=== PATIENT | female | born 1960 | race Caucasian/White ===

== ENCOUNTER 2020-08-06 11:35 | Inpatient (IN) ==
[2020-08-06] MEDS ORDERED: Morphine Sulfate Oral CONC 10 MG/0.5 ML ORAL.SYG SL PRN (12:49)
[2020-08-06] MEDS ORDERED: Ondansetron 4 MG/2 ML VIAL IVP PRN (12:49)
[2020-08-06] MEDS: metroNIDAZOLE 500 MG TABLET PO SCH ×3 (13:49→19:52)
[2020-08-06] MEDS: Acetaminophen IV 1,000 MG/100 ML BAG IVPB SCH ×2 (16:56→23:35)
[2020-08-06] MEDS: *HR* Heparin 5,000 UNIT/ML VIAL SQ SCH (16:57)
[2020-08-06] MEDS: Ketorolac 30 MG/ML VIAL IVP SCH ×2 (16:57→23:34)
[2020-08-06 20:20] LABS: Adenovirus Not Detected (Not Detect); Bordetella Pertussis Not Detected (Not Detect); Chlamydophila pneumoniae Not Detected (Not Detect); Coronavirus 229E Not Detected (Not Detect); Coronavirus HKU1 Not Detected (Not Detect); Coronavirus NL63 Not Detected (Not Detect); Coronavirus OC43 Not Detected (Not Detect); Human Metapneumovirus Not Detected (Not Detect); Human Rhinovirus/Enterovirus Not Detected (Not Detect); Influenza A Subtype 2009 H1 Not Detected (Not Detect); Influenza B Not Detected (Not Detect); Mycoplasma pneumoniae Not Detected (Not Detect); Parainfluenza Virus 1 Not Detected (Not Detect); Parainfluenza Virus 2 Not Detected (Not Detect); Parainfluenza Virus 3 Not Detected (Not Detect); Parainfluenza Virus 4 Not Detected (Not Detect); Respiratory Syncytial Virus Not Detected (Not Detect); SARS-CoV-2 Not Detected (Not Detect)
[2020-08-06] MEDS: 0.9 % Sodium Chloride 1,000 ML IVC SCH (23:36)
[2020-08-07] MEDS: *HR* Heparin 5,000 UNIT/ML VIAL SQ SCH ×2 (05:31→17:17)
[2020-08-07] MEDS: Ketorolac 30 MG/ML VIAL IVP SCH ×4 (05:37→23:46)
[2020-08-07] MEDS: Acetaminophen IV 1,000 MG/100 ML BAG IVPB SCH ×4 (05:37→23:47)
[2020-08-07] MEDS ORDERED: Pantoprazole 40 MG VIAL IVP SCH (09:00)
[2020-08-07] MEDS: 0.9 % Sodium Chloride 1,000 ML IVC SCH ×2 (09:27→17:54)
[2020-08-07] MEDS ORDERED: levoFLOXacin 500 MG/100 ML 500 MG/100 ML BAG IVPB SCH (09:45)
[2020-08-07 10:09] LABS: Basophils % 0.6 %; Eosinophils # 0.2 K/mcL (0.0-0.6); Eosinophils % 2.3 %; Hematocrit 39.3 % (35.3-44.9); Hemoglobin 12.2 g/dL (11.5-15.4); Immature Granulocytes % 1.3 % (0-4); Lymphocytes # 1.5 K/mcL (0.6-4.6); Lymphocytes % 21.8 %; Mean Corpuscular Hemoglobin 29.6 pg (28.0-33.3); Mean Corpuscular Volume 95.4 fL (83.0-100.0); Mean Platelet Volume 11.7 fL (9.4-12.4); Monocytes # 0.5 K/mcL (0.0-1.3); Monocytes % 6.4 %; Neutrophils # 4.8 K/mcL (1.6-8.9); Platelet Count 213 K/mcL (140-400); Red Blood Count 4.12 M/mcL (3.82-4.97); Red Cell Distribution Width 13.2 % (11.5-14.5); Segmented Neutrophils % 67.6 %
[2020-08-07 10:26] LABS: BUN/Creatinine Ratio 13 (6-26); Blood Urea Nitrogen 8 mg/dL (6-20); Carbon Dioxide 28 mEq/L (23-29); Chloride 105 mEq/L (98-107); Glucose 90 mg/dL (70-105); Osmolality,Calculated 284 (280-300); Potassium 3.8 mEq/L (3.5-5.1); Sodium 138 mEq/L (136-145); eGFR For African Americans > 60 (> 60); eGFR For Non-African Americans > 60 (> 60)
[2020-08-07] MEDS ORDERED: MetroNIDAZOLE 500 MG/100 ML 500 MG/100 ML BAG IVPB SCH (11:00)
[2020-08-07] MEDS ORDERED: CefOXitin 1,000 MG VIAL ONE (12:26)
[2020-08-07] MEDS ORDERED: *HR* HYDROmorphone PF 0.5 MG/0.5 ML SYRINGE IVP PRN (16:19)
[2020-08-07] MEDS ORDERED: Promethazine 6.25 MG in Water for inj. (sterile) 20 ML IVPB PRN (16:19)
[2020-08-07] MEDS ORDERED: *HR* Meperidine 25 MG/ML SYRINGE IVP PRN (16:19)
[2020-08-07] MEDS ORDERED: Ondansetron 4 MG/2 ML VIAL IVP PRN (16:19)
[2020-08-07] MEDS ORDERED: *HR* HYDROmorphone 20 MG/20 ML PCA IVC PRN (17:10)
[2020-08-07] MEDS ORDERED: Naloxone 0.4 MG/ML INJ IVP PRN (17:10)
[2020-08-07] MEDS: Ondansetron 4 MG/2 ML VIAL IVP PRN (18:24)
[2020-08-07] MEDS: MetroNIDAZOLE 500 MG/100 ML 500 MG/100 ML BAG IVPB SCH (20:18)
[2020-08-08] MEDS: Ondansetron 4 MG/2 ML VIAL IVP PRN (00:33)
[2020-08-08] MEDS: MetroNIDAZOLE 500 MG/100 ML 500 MG/100 ML BAG IVPB SCH ×3 (02:24→19:35)
[2020-08-08] MEDS: Ketorolac 30 MG/ML VIAL IVP SCH ×4 (05:25→23:24)
[2020-08-08] MEDS: *HR* Heparin 5,000 UNIT/ML VIAL SQ SCH ×2 (05:26→17:38)
[2020-08-08] MEDS: Acetaminophen IV 1,000 MG/100 ML BAG IVPB SCH ×4 (05:26→23:24)
[2020-08-08] MEDS: 0.9 % Sodium Chloride 1,000 ML IVC SCH (05:35)
[2020-08-08] MEDS ORDERED: *HR* Metoprolol 5 MG/5 ML VIAL IVP PRN (09:07)
[2020-08-08 10:02] LABS: Basophils % 0.1 %; Eosinophils # 0.1 K/mcL (0.0-0.6); Eosinophils % 1.7 %; Immature Granulocytes % 0.7 % (0-4); Lymphocytes # 0.9 K/mcL (0.6-4.6); Lymphocytes % 10.4 %; Mean Corpuscular HGB Conc 32.3 g/dL (31.6-35.5); Mean Corpuscular Hemoglobin 31.3 pg (28.0-33.3); Mean Corpuscular Volume 96.9 fL (83.0-100.0); Mean Platelet Volume 11.3 fL (9.4-12.4); Monocytes # 0.6 K/mcL (0.0-1.3); Monocytes % 7.5 %; Neutrophils # 6.5 K/mcL (1.6-8.9); Platelet Count 170 K/mcL (140-400); Red Cell Distribution Width 13.4 % (11.5-14.5); Segmented Neutrophils % 79.6 %; White Blood Count 8.2 K/mcL (4.3-11.1)
[2020-08-08] MEDS: levoFLOXacin 500 MG/100 ML 500 MG/100 ML BAG IVPB SCH (10:18)
[2020-08-08] MEDS: BuPROPion XL (24 HR) 150 MG TABLET PO SCH (10:18)
[2020-08-08] MEDS: Pantoprazole 40 MG VIAL IVP SCH (10:18)
[2020-08-08 10:22] LABS: BUN/Creatinine Ratio 14 (6-26); Blood Urea Nitrogen 8 mg/dL (6-20); Carbon Dioxide 23 mEq/L (23-29); Chloride 110 mEq/L (98-107); Glucose 94 mg/dL (70-105); Osmolality,Calculated 284 (280-300); Potassium 3.6 mEq/L (3.5-5.1); Sodium 138 mEq/L (136-145); eGFR For African Americans > 60 (> 60); eGFR For Non-African Americans > 60 (> 60)
[2020-08-08] MEDS: D5% in 0.45% NACL w KCl 20 MEQ/1,000 ML MLS IVC SCH (12:44)
[2020-08-08] MEDS ORDERED: Chloraseptic Spray 177 ML BOTTLE MM PRN (17:21)
[2020-08-09] MEDS: D5% in 0.45% NACL w KCl 20 MEQ/1,000 ML MLS IVC SCH ×4 (00:29→21:16)
[2020-08-09] MEDS: MetroNIDAZOLE 500 MG/100 ML 500 MG/100 ML BAG IVPB SCH ×3 (03:44→21:12)
[2020-08-09] MEDS: *HR* Heparin 5,000 UNIT/ML VIAL SQ SCH ×2 (04:53→17:02)
[2020-08-09] MEDS: Acetaminophen IV 1,000 MG/100 ML BAG IVPB SCH ×3 (04:54→15:30)
[2020-08-09] MEDS: Ketorolac 30 MG/ML VIAL IVP SCH ×3 (07:45→17:03)
[2020-08-09] MEDS: levoFLOXacin 500 MG/100 ML 500 MG/100 ML BAG IVPB SCH (07:46)
[2020-08-09] MEDS: Pantoprazole 40 MG VIAL IVP SCH (07:46)
[2020-08-09] MEDS: BuPROPion XL (24 HR) 150 MG TABLET PO SCH (07:46)
[2020-08-09 10:38] LABS: BUN/Creatinine Ratio 10 (6-26); Blood Urea Nitrogen 6 mg/dL (6-20); Calcium 8.2 mg/dL (8.6-10.3); Carbon Dioxide 25 mEq/L (23-29); Chloride 109 mEq/L (98-107); Glucose 112 mg/dL (70-105); Magnesium 1.7 mg/dL (1.6-2.6); Osmolality,Calculated 284 (280-300); Phosphorous 2.5 mg/dL (2.7-4.5); Potassium 3.7 mEq/L (3.5-5.1); Sodium 138 mEq/L (136-145); eGFR For African Americans > 60 (> 60); eGFR For Non-African Americans > 60 (> 60)
[2020-08-10] MEDS: Acetaminophen IV 1,000 MG/100 ML BAG IVPB SCH ×4 (00:37→21:05)
[2020-08-10] MEDS: *HR* Heparin 5,000 UNIT/ML VIAL SQ SCH ×2 (05:29→17:58)
[2020-08-10] MEDS: MetroNIDAZOLE 500 MG/100 ML 500 MG/100 ML BAG IVPB SCH ×3 (05:29→17:58)
[2020-08-10] MEDS: BuPROPion XL (24 HR) 150 MG TABLET PO SCH ×2 (09:03→09:49)
[2020-08-10] MEDS: Pantoprazole 40 MG VIAL IVP SCH (09:10)
[2020-08-10] MEDS: levoFLOXacin 500 MG/100 ML 500 MG/100 ML BAG IVPB SCH (09:11)
[2020-08-10] MEDS: D5% in 0.45% NACL w KCl 20 MEQ/1,000 ML MLS IVC SCH (09:17)
[2020-08-10] MEDS: Ketorolac 15 MG/ML VIAL IVP SCH ×3 (11:43→23:42)
[2020-08-10] MEDS: Ondansetron 4 MG/2 ML VIAL IVP PRN (21:20)
[2020-08-11] MEDS: MetroNIDAZOLE 500 MG/100 ML 500 MG/100 ML BAG IVPB SCH ×3 (02:06→19:32)
[2020-08-11] MEDS: Acetaminophen IV 1,000 MG/100 ML BAG IVPB SCH ×4 (02:07→21:01)
[2020-08-11] MEDS: *HR* Heparin 5,000 UNIT/ML VIAL SQ SCH ×2 (05:52→17:20)
[2020-08-11] MEDS: Ketorolac 15 MG/ML VIAL IVP SCH ×4 (05:52→23:34)
[2020-08-11 07:06] LABS: Basophils % 0.4 %; Eosinophils # 0.3 K/mcL (0.0-0.6); Eosinophils % 3.5 %; Hemoglobin 10.1 g/dL (11.5-15.4); Immature Granulocytes % 0.9 % (0-4); Lymphocytes # 1.2 K/mcL (0.6-4.6); Lymphocytes % 14.9 %; Mean Corpuscular HGB Conc 32.6 g/dL (31.6-35.5); Mean Corpuscular Hemoglobin 30.4 pg (28.0-33.3); Mean Corpuscular Volume 93.4 fL (83.0-100.0); Mean Platelet Volume 10.9 fL (9.4-12.4); Monocytes # 0.5 K/mcL (0.0-1.3); Monocytes % 6.6 %; Neutrophils # 5.9 K/mcL (1.6-8.9); Platelet Count 193 K/mcL (140-400); Red Blood Count 3.32 M/mcL (3.82-4.97); Red Cell Distribution Width 13.3 % (11.5-14.5); Segmented Neutrophils % 73.7 %; White Blood Count 7.9 K/mcL (4.3-11.1)
[2020-08-11 07:28] LABS: BUN/Creatinine Ratio 9 (6-26); Blood Urea Nitrogen 4 mg/dL (6-20); Calcium 8.4 mg/dL (8.6-10.3); Carbon Dioxide 24 mEq/L (23-29); Chloride 109 mEq/L (98-107); Glucose 107 mg/dL (70-105); Magnesium 1.7 mg/dL (1.6-2.6); Osmolality,Calculated 287 (280-300); Phosphorous 3.8 mg/dL (2.7-4.5); Potassium 3.3 mEq/L (3.5-5.1); Sodium 140 mEq/L (136-145); eGFR For African Americans > 60 (> 60); eGFR For Non-African Americans > 60 (> 60)
[2020-08-11] MEDS ORDERED: Scopolamine Patch 1.5 MG PATCH.TD72 TD ONE (07:31)
[2020-08-11] MEDS ORDERED: Potassium Chloride 40 MEQ, Lidocaine 1% 2 ML in 0.9 % Sodium Chloride 500 ML IVPB ONE (07:43)
[2020-08-11] MEDS: Pantoprazole 40 MG VIAL IVP SCH (08:38)
[2020-08-11] MEDS: BuPROPion XL (24 HR) 150 MG TABLET PO SCH (08:38)
[2020-08-11] MEDS: levoFLOXacin 500 MG/100 ML 500 MG/100 ML BAG IVPB SCH (08:50)
[2020-08-11] MEDS ORDERED: Propranolol LA (24 HR) 80 MG CAP.SA.24H PO SCH (18:00)
[2020-08-12] MEDS: MetroNIDAZOLE 500 MG/100 ML 500 MG/100 ML BAG IVPB SCH (02:59)
[2020-08-12] MEDS: Acetaminophen IV 1,000 MG/100 ML BAG IVPB SCH ×2 (04:06→10:04)
[2020-08-12] MEDS: Ketorolac 15 MG/ML VIAL IVP SCH (06:15)
[2020-08-12] MEDS: *HR* Heparin 5,000 UNIT/ML VIAL SQ SCH (06:16)
[2020-08-12 06:45] VITALS: BP 134/85
[2020-08-12 07:40] LABS: BUN/Creatinine Ratio 8 (6-26); Blood Urea Nitrogen 4 mg/dL (6-20); Calcium 8.4 mg/dL (8.6-10.3); Carbon Dioxide 25 mEq/L (23-29); Chloride 109 mEq/L (98-107); Glucose 88 mg/dL (70-105); Magnesium 1.6 mg/dL (1.6-2.6); Osmolality,Calculated 288 (280-300); Phosphorous 3.4 mg/dL (2.7-4.5); Potassium 3.5 mEq/L (3.5-5.1); Sodium 141 mEq/L (136-145); eGFR For African Americans > 60 (> 60); eGFR For Non-African Americans > 60 (> 60)
[2020-08-12] MEDS ORDERED: Ibuprofen 800 MG TABLET PO ONE (09:03)
[2020-08-12] MEDS: Pantoprazole 40 MG VIAL IVP SCH (09:31)
[2020-08-12] MEDS: BuPROPion XL (24 HR) 150 MG TABLET PO SCH (09:32)
[2020-08-12] MEDS: levoFLOXacin 500 MG/100 ML 500 MG/100 ML BAG IVPB SCH (09:33)
== END 2020-08-12 13:07 | disposition home or self-care (01) | DRG 331 ==
LOC: 3ANU
PROVIDERS: ADMIT Surgery; ATTEND Surgery

== ENCOUNTER 2021-09-17 07:06 | Inpatient (IN) ==
[2021-09-17] MEDS ORDERED: Ondansetron 4 MG/2 ML VIAL ONE (07:12)
[2021-09-17] MEDS ORDERED: Lidocaine -MPF 4% 5 ML AMPUL ONE (07:12)
[2021-09-17] MEDS ORDERED: *HR* Succinylcholine 200 MG/10 ML VIAL IVP ONE (07:12)
[2021-09-17] MEDS ORDERED: Lidocaine -MPF 2% 5 ML VIAL ONE (07:12)
[2021-09-17] MEDS ORDERED: *HR* Rocuronium Bromide 50 MG/5 ML VIAL ONE ×3 (07:12→12:42)
[2021-09-17] MEDS ORDERED: CefOXitin 1,000 MG VIAL ONE ×2 (07:13→14:20)
[2021-09-17] MEDS ORDERED: *HR* Propofol 200 MG/20 ML VIAL IVP ONE (07:13)
[2021-09-17] MEDS ORDERED: *HR* Midazolam HCl 2 MG/2 ML VIAL ONE (07:13)
[2021-09-17] MEDS ORDERED: *HR* FentaNYL (PF) 100 MCG/2 ML VIAL ONE (07:13)
[2021-09-17] MEDS ORDERED: Ringers Solution, Lactated 1,000 ML IVC SCH (07:30)
[2021-09-17] MEDS ORDERED: *HR* HYDROmorphone 2 MG TABLET PO PRN (07:45)
[2021-09-17] MEDS ORDERED: Acetaminophen IV 1,000 MG/100 ML BAG IVPB ONE (07:45)
[2021-09-17] MEDS ORDERED: Famotidine 20 MG/2 ML VIAL IVP ONE (07:45)
[2021-09-17] MEDS ORDERED: *HR* OxyCODONE Immed Rel 5 MG TABLET PO PRN (07:45)
[2021-09-17] MEDS ORDERED: Pregabalin 75 MG CAPSULE PO ONE (07:45)
[2021-09-17] MEDS ORDERED: *HR* Promethazine 25 MG/ML VIAL IVPB PRN (07:45)
[2021-09-17] MEDS ORDERED: *HR* Labetalol 20 MG/4 ML SYRINGE IVP PRN (07:45)
[2021-09-17] MEDS ORDERED: Propranolol LA (24 HR) 80 MG CAP.SA.24H PO SCH (08:01)
[2021-09-17] MEDS ORDERED: Scopolamine Patch 1.5 MG PATCH.TD72 TD ONE (08:02)
[2021-09-17] MEDS: cefOXitin 2,000 MG in Water for inj. (sterile) 10 ML IVP ONE ×2 (08:52→13:01)
[2021-09-17] MEDS ORDERED: cefOXitin 2,000 MG in Water for inj. (sterile) 10 ML IVP ONE (09:00)
[2021-09-17] MEDS ORDERED: EPHEDrine 50 MG/ML VIAL ONE (09:30)
[2021-09-17] MEDS ORDERED: *HR* HYDROMORPHONE 2 MG/ML VIAL ONE (10:12)
[2021-09-17] MEDS ORDERED: Albumin Human 5% 12.5 GM/250 ML IV.SOLN ONE ×2 (12:58→13:24)
[2021-09-17] MEDS ORDERED: CefOXitin 2,000 MG VIAL ONE (12:59)
[2021-09-17] MEDS ORDERED: Sugammadex Sodium 200 MG/2 ML VIAL IV ONE (14:43)
[2021-09-17] MEDS: *HR* HYDROmorphone (PF) 1 MG/ML SYRINGE IVP PRN ×4 (15:20→15:50)
[2021-09-17] MEDS ORDERED: Ketorolac 30 MG/ML VIAL IVP ONE (15:58)
[2021-09-17] MEDS ORDERED: Naloxone 0.4 MG/ML INJ IVP PRN (16:52)
[2021-09-17] MEDS: 0.9 % Sodium Chloride 1,000 ML IVC SCH (17:57)
[2021-09-17] MEDS: cefOXitin 1,000 MG in 0.9 % Sodium Chloride Mini Bag 100 ML IVPB SCH (17:59)
[2021-09-17] MEDS: Ketorolac 30 MG/ML VIAL IVP SCH (18:02)
[2021-09-17] MEDS: *HR* Metoprolol 5 MG/5 ML VIAL IVP SCH (18:02)
[2021-09-17] MEDS: *HR* HYDROmorphone PCA *PREMADE* 20 MG/1MG/ML (20mL) PCA VIAL IVC PRN (18:37)
[2021-09-18] MEDS: *HR* Metoprolol 5 MG/5 ML VIAL IVP SCH ×4 (00:47→17:32)
[2021-09-18] MEDS: cefOXitin 1,000 MG in 0.9 % Sodium Chloride Mini Bag 100 ML IVPB SCH ×3 (00:49→15:34)
[2021-09-18] MEDS: Ketorolac 30 MG/ML VIAL IVP SCH ×4 (00:50→17:33)
[2021-09-18 01:10] LABS: Hematocrit 29.1 % (35.3-44.9); Hemoglobin 9.9 g/dL (11.5-15.4); Mean Corpuscular Hemoglobin 32.1 pg (28.0-33.3); Mean Corpuscular Volume 94.5 fL (83.0-100.0); Mean Platelet Volume 11.8 fL (9.4-12.4); Platelet Count 160 K/mcL (140-400); Red Blood Count 3.08 M/mcL (3.82-4.97); Red Cell Distribution Width 12.5 % (11.5-14.5); White Blood Count 9.4 K/mcL (4.3-11.1)
[2021-09-18 01:25] LABS: BUN/Creatinine Ratio 12 (6-26); Blood Urea Nitrogen 9 mg/dL (8-23); Calcium 7.7 mg/dL (8.6-10.3); Carbon Dioxide 27 mEq/L (23-29); Chloride 109 mEq/L (98-107); Glucose 121 mg/dL (70-105); Osmolality,Calculated 284 (280-300); Potassium 4.2 mEq/L (3.5-5.1); Sodium 137 mEq/L (136-145); eGFR For African Americans > 60 (> 60); eGFR For Non-African Americans > 60 (> 60)
[2021-09-18 01:41] LABS: Lymphocytes # 0.5 K/mcL (0.6-4.6); Monocytes # 0.6 K/mcL (0.0-1.3); Neutrophils # 8.4 K/mcL (1.6-8.9); Platelet Estimate Normal (Normal); Reactive Lymphocytes Present (Not Present)
[2021-09-18] MEDS: 0.9 % Sodium Chloride 1,000 ML IVC SCH ×3 (02:59→17:32)
[2021-09-18] MEDS: Pantoprazole 40 MG VIAL IVP SCH (09:09)
[2021-09-18] MEDS: *HR* Heparin 5,000 UNIT/ML VIAL SQ SCH (17:32)
[2021-09-19] MEDS ORDERED: Dextrose Gel 15 GM/37.5 ML TUBE PO PRN (00:11)
[2021-09-19] MEDS ORDERED: D5% in Water 1,000 ML IVC PRN (00:11)
[2021-09-19] MEDS ORDERED: *HR* Dextrose 50 % in Water (Syg) 50 ML SYRINGE IVP PRN (00:11)
[2021-09-19] MEDS: Dextrose Gel 15 GM/37.5 ML TUBE PO PRN ×2 (00:40→13:04)
[2021-09-19] MEDS: *HR* Metoprolol 5 MG/5 ML VIAL IVP SCH ×4 (00:42→17:21)
[2021-09-19] MEDS: Ketorolac 30 MG/ML VIAL IVP SCH ×4 (00:43→17:22)
[2021-09-19] MEDS: cefOXitin 1,000 MG in 0.9 % Sodium Chloride Mini Bag 100 ML IVPB SCH ×3 (00:51→15:52)
[2021-09-19] MEDS: 0.9 % Sodium Chloride 1,000 ML IVC SCH ×3 (02:11→15:15)
[2021-09-19] MEDS: *HR* Heparin 5,000 UNIT/ML VIAL SQ SCH ×2 (05:36→17:21)
[2021-09-19] MEDS: Pantoprazole 40 MG VIAL IVP SCH (08:15)
[2021-09-19] MEDS: *HR* HYDROmorphone PCA *PREMADE* 20 MG/1MG/ML (20mL) PCA VIAL IVC PRN (13:18)
[2021-09-19] MEDS: D5% in 0.45% NACL w KCl 20 MEQ/1,000 ML MLS IVC SCH (18:37)
[2021-09-19] MEDS: *HR* LORazepam 2 MG/ML VIAL IVP PRN (18:38)
[2021-09-20] MEDS: *HR* Metoprolol 5 MG/5 ML VIAL IVP SCH ×4 (00:44→18:12)
[2021-09-20] MEDS: Ketorolac 30 MG/ML VIAL IVP SCH ×4 (00:44→18:11)
[2021-09-20] MEDS: cefOXitin 1,000 MG in 0.9 % Sodium Chloride Mini Bag 100 ML IVPB SCH ×3 (00:44→16:07)
[2021-09-20] MEDS: Ondansetron 4 MG/2 ML VIAL IVP PRN ×3 (01:17→16:07)
[2021-09-20] MEDS: *HR* Heparin 5,000 UNIT/ML VIAL SQ SCH ×2 (06:17→18:12)
[2021-09-20 08:12] LABS: Hemoglobin 8.2 g/dL (11.5-15.4); Mean Platelet Volume 11.6 fL (9.4-12.4); Red Cell Distribution Width 12.4 % (11.5-14.5)
[2021-09-20 08:14] LABS: Basophils % 0.2 %; Eosinophils # 0.3 K/mcL (0.0-0.6); Eosinophils % 3.1 %; Hematocrit 24.7 % (35.3-44.9); Immature Granulocytes % 0.7 % (0-4); Immature Platelets 7.3 % (1.1-6.1); Lymphocytes # 0.7 K/mcL (0.6-4.6); Lymphocytes % 7.9 %; Mean Corpuscular HGB Conc 33.2 g/dL (31.6-35.5); Mean Corpuscular Hemoglobin 31.4 pg (28.0-33.3); Mean Corpuscular Volume 94.6 fL (83.0-100.0); Monocytes # 0.6 K/mcL (0.0-1.3); Monocytes % 6.8 %; Platelet Count 134 K/mcL (140-400); Red Blood Count 2.61 M/mcL (3.82-4.97); Segmented Neutrophils % 81.3 %; White Blood Count 8.4 K/mcL (4.3-11.1)
[2021-09-20 08:18] LABS: Neutrophils # 6.8 K/mcL (1.6-8.9)
[2021-09-20] MEDS: Pantoprazole 40 MG VIAL IVP SCH (09:03)
[2021-09-20] MEDS: D5% in 0.45% NACL w KCl 20 MEQ/1,000 ML MLS IVC SCH ×2 (09:03→16:13)
[2021-09-20 10:06] LABS: BUN/Creatinine Ratio 7 (6-26); Blood Urea Nitrogen 4 mg/dL (8-23); Carbon Dioxide 25 mEq/L (23-29); Chloride 107 mEq/L (98-107); Glucose 129 mg/dL (70-105); Magnesium 1.6 mg/dL (1.6-2.6); Osmolality,Calculated 287 (280-300); Phosphorous 1.7 mg/dL (2.7-4.5); Potassium 3.4 mEq/L (3.5-5.1); Sodium 139 mEq/L (136-145); eGFR For African Americans > 60 (> 60); eGFR For Non-African Americans > 60 (> 60)
[2021-09-20] MEDS: Acetaminophen IV 1,000 MG/100 ML BAG IVPB SCH ×2 (11:03→18:12)
[2021-09-20] MEDS: Chloraseptic Spray 177 ML BOTTLE MM PRN ×2 (11:19→16:07)
[2021-09-20] MEDS: *HR* HYDROmorphone PCA *PREMADE* 20 MG/1MG/ML (20mL) PCA VIAL IVC PRN (19:45)
[2021-09-21] MEDS: Acetaminophen IV 1,000 MG/100 ML BAG IVPB SCH ×4 (00:14→18:42)
[2021-09-21] MEDS: *HR* Metoprolol 5 MG/5 ML VIAL IVP SCH ×4 (00:16→17:46)
[2021-09-21] MEDS: cefOXitin 1,000 MG in 0.9 % Sodium Chloride Mini Bag 100 ML IVPB SCH ×3 (00:24→17:47)
[2021-09-21] MEDS: *HR* Heparin 5,000 UNIT/ML VIAL SQ SCH ×2 (05:46→17:47)
[2021-09-21] MEDS: D5% in 0.45% NACL w KCl 20 MEQ/1,000 ML MLS IVC SCH ×3 (06:18→19:47)
[2021-09-21] MEDS: Pantoprazole 40 MG VIAL IVP SCH (08:40)
[2021-09-21] MEDS: 0.9 % Sodium Chloride 1,000 ML IVC SCH (11:58)
[2021-09-22] MEDS: Acetaminophen IV 1,000 MG/100 ML BAG IVPB SCH ×4 (00:27→18:17)
[2021-09-22] MEDS ORDERED: 0.9 % Sodium Chloride Mini Bag 100 ML ONE (00:47)
[2021-09-22] MEDS: cefOXitin 1,000 MG in 0.9 % Sodium Chloride Mini Bag 100 ML IVPB SCH ×3 (00:51→16:08)
[2021-09-22] MEDS: *HR* Metoprolol 5 MG/5 ML VIAL IVP SCH ×2 (02:20→05:21)
[2021-09-22] MEDS: *HR* Heparin 5,000 UNIT/ML VIAL SQ SCH ×2 (05:21→18:16)
[2021-09-22] MEDS: D5% in 0.45% NACL w KCl 20 MEQ/1,000 ML MLS IVC SCH ×2 (05:22→16:06)
[2021-09-22] MEDS: Pantoprazole 40 MG VIAL IVP SCH (08:46)
[2021-09-22] MEDS: *HR* LORazepam 2 MG/ML VIAL IVP PRN (08:47)
[2021-09-22] MEDS ORDERED: *HR* Metoprolol 5 MG/5 ML VIAL IVP PRN (10:40)
[2021-09-22] MEDS: BuPROPion XL (24 HR) 150 MG TABLET PO SCH (12:15)
[2021-09-22] MEDS ORDERED: Propranolol LA (24 HR) 80 MG CAP.SA.24H PO SCH (18:00)
[2021-09-22] MEDS ORDERED: valACYclovir 500 MG TABLET PO SCH (21:00)
[2021-09-23] MEDS: cefOXitin 1,000 MG in 0.9 % Sodium Chloride Mini Bag 100 ML IVPB SCH ×2 (00:16→08:00)
[2021-09-23] MEDS: Acetaminophen IV 1,000 MG/100 ML BAG IVPB SCH ×2 (00:18→06:01)
[2021-09-23] MEDS: *HR* HYDROmorphone PCA *PREMADE* 20 MG/1MG/ML (20mL) PCA VIAL IVC PRN (01:15)
[2021-09-23] MEDS: D5% in 0.45% NACL w KCl 20 MEQ/1,000 ML MLS IVC SCH (03:42)
[2021-09-23] MEDS: *HR* Heparin 5,000 UNIT/ML VIAL SQ SCH (06:02)
[2021-09-23] MEDS: BuPROPion XL (24 HR) 150 MG TABLET PO SCH (08:00)
[2021-09-23] MEDS ORDERED: *HR* OxyCODONE Immed Rel 5 MG TABLET PO PRN (08:29)
[2021-09-23] MEDS ORDERED: Ibuprofen 600 MG TABLET PO SCH (08:29)
[2021-09-23] MEDS ORDERED: polyethylene glycoL 3350 17 GM POWD.PACK PO SCH (09:00)
[2021-09-23 10:42] VITALS: BP 157/81; PULSE 82; TEMP 98.8; O2SAT 98
== END 2021-09-23 13:55 | disposition home or self-care (01) | DRG 331 ==
LOC: SAMDAY 07:06 → 3ANU 16:51
PROVIDERS: ADMIT Surgery; ATTEND Surgery

== ENCOUNTER 2021-09-27 23:19 | Inpatient (IN) ==
[2021-09-27] MEDS ORDERED: Ondansetron 4 MG/2 ML VIAL IVP ONE (23:41)
[2021-09-27] MEDS ORDERED: 0.9 % Sodium Chloride 1,000 ML IVC ONE (23:41)
[2021-09-27] MEDS ORDERED: Ketorolac 30 MG/ML VIAL IVP ONE (23:41)
[2021-09-27] MEDS ORDERED: Isovue-370 500 ML BOTTLE IVP ONE (23:45)
[2021-09-28 00:03] LABS: INR 1.1; Prothrombin Time 12.8 Seconds (9.4-12.1)
[2021-09-28 00:06] LABS: Activated Partial Thrombo Time 34.9 Seconds (26.0-36.0)
[2021-09-28 00:16] LABS: Alanine Aminotransferase 42 Units/L (7-52); Albumin 4.2 g/dL (3.5-5.7); Albumin/Globulin Ratio 1.6 (1.1-2.2); Alkaline Phosphatase 81 Units/L (34-104); Amylase 41 Units/L (29-103); Aspartate Amino Transferase 20 Units/L (13-39); BUN/Creatinine Ratio 10 (6-26); Basophils # 0.2 K/mcL (0.0-0.2); Basophils % 1.3 %; Bilirubin,Indirect 0.5 mg/dL (0.0-1.0); Bilirubin,Total 0.5 mg/dL (0.3-1.0); Blood Urea Nitrogen 7 mg/dL (8-23); Calcium 9.4 mg/dL (8.6-10.3); Carbon Dioxide 26 mEq/L (23-29); Chloride 100 mEq/L (98-107); Eosinophils # 0.6 K/mcL (0.0-0.6); Eosinophils % 4.4 %; Globulin 2.6 g/dL (2.4-3.5); Glucose 114 mg/dL (70-105); Hematocrit 33.1 % (35.3-44.9); Hemoglobin 10.9 g/dL (11.5-15.4); Lipase 20 Units/L (11-82); Lymphocytes # 1.1 K/mcL (0.6-4.6); Lymphocytes % 8.7 %; Mean Corpuscular HGB Conc 32.9 g/dL (31.6-35.5); Mean Corpuscular Hemoglobin 31.1 pg (28.0-33.3); Mean Corpuscular Volume 94.3 fL (83.0-100.0); Mean Platelet Volume 10.6 fL (9.4-12.4); Monocytes # 0.8 K/mcL (0.0-1.3); Monocytes % 5.8 %; Neutrophils # 9.3 K/mcL (1.6-8.9); Osmolality,Calculated 281 (280-300); Platelet Count 384 K/mcL (140-400); Potassium 3.8 mEq/L (3.5-5.1); Red Blood Count 3.51 M/mcL (3.82-4.97); Red Cell Distribution Width 13.1 % (11.5-14.5); Segmented Neutrophils % 71.8 %; Sodium 136 mEq/L (136-145); Total Protein 6.8 g/dL (6.4-8.9); Troponin I < 0.03 ng/mL (< 0.04); White Blood Count 12.9 K/mcL (4.3-11.1); eGFR For African Americans > 60 (> 60); eGFR For Non-African Americans > 60 (> 60)
[2021-09-28 00:50] LABS: Platelet Estimate Normal (Normal)
[2021-09-28] MEDS ORDERED: 0.9 % Sodium Chloride 1,000 ML IVC SCH (01:00)
[2021-09-28 01:18] LABS: Bilirubin,Urine Negative (Negative); Blood,Urine Negative (Negative); Clarity,Urine Clear (Clear); Color,Urine Light-Yellow (Yellow); Glucose,Urine (UA) Normal (Normal); Ketones,Urine 40 mg/dL (Negative); Leukocyte Esterase,Urine Negative (Negative); Nitrite,Urine Negative (Negative); Protein,Urine Negative (Neg-Trace); Specific Gravity,Urine 1.027 (1.010-1.025); Urobilinogen,Urine Normal (Normal)
[2021-09-28] MEDS ORDERED: Naloxone 0.4 MG/ML INJ IVP PRN (03:25)
[2021-09-28] MEDS ORDERED: Ondansetron 4 MG/2 ML VIAL IVP PRN (03:25)
[2021-09-28] MEDS ORDERED: Saliva Stimulant 44.3ml BOTTLE PO PRN (03:28)
[2021-09-28] MEDS: Acetaminophen IV 1,000 MG/100 ML BAG IVPB SCH ×3 (04:30→21:30)
[2021-09-28] MEDS: Ringers Solution, Lactated 1,000 ML IVC SCH ×2 (04:31→17:23)
[2021-09-28] MEDS: Ketorolac 30 MG/ML VIAL IVP SCH ×3 (04:47→17:21)
[2021-09-28] MEDS: Ondansetron 4 MG/2 ML VIAL IVP SCH ×3 (05:10→17:20)
[2021-09-28 05:42] LABS: Hematocrit 28.9 % (35.3-44.9); Hemoglobin 9.4 g/dL (11.5-15.4); Mean Corpuscular HGB Conc 32.5 g/dL (31.6-35.5); Mean Corpuscular Hemoglobin 30.6 pg (28.0-33.3); Mean Corpuscular Volume 94.1 fL (83.0-100.0); Mean Platelet Volume 10.5 fL (9.4-12.4); Platelet Count 311 K/mcL (140-400); Red Blood Count 3.07 M/mcL (3.82-4.97); Red Cell Distribution Width 13.2 % (11.5-14.5); White Blood Count 11.9 K/mcL (4.3-11.1)
[2021-09-28 05:52] LABS: INR 1.2; Prothrombin Time 13.1 Seconds (9.4-12.1)
[2021-09-28 06:02] LABS: Alanine Aminotransferase 34 Units/L (7-52); Albumin 3.8 g/dL (3.5-5.7); Albumin/Globulin Ratio 1.8 (1.1-2.2); Alkaline Phosphatase 72 Units/L (34-104); Aspartate Amino Transferase 15 Units/L (13-39); BUN/Creatinine Ratio 11 (6-26); Bilirubin,Total 0.4 mg/dL (0.3-1.0); Blood Urea Nitrogen 7 mg/dL (8-23); Calcium 8.8 mg/dL (8.6-10.3); Carbon Dioxide 23 mEq/L (23-29); Chloride 102 mEq/L (98-107); Globulin 2.1 g/dL (2.4-3.5); Glucose 103 mg/dL (70-105); Magnesium 1.8 mg/dL (1.6-2.6); Osmolality,Calculated 282 (280-300); Phosphorous 3.9 mg/dL (2.7-4.5); Potassium 3.7 mEq/L (3.5-5.1); Sodium 137 mEq/L (136-145); Total Protein 5.9 g/dL (6.4-8.9); eGFR For African Americans > 60 (> 60); eGFR For Non-African Americans > 60 (> 60)
[2021-09-28] MEDS ORDERED: D5% in Water 1,000 ML IVC PRN (07:25)
[2021-09-28] MEDS ORDERED: Dextrose Gel 15 GM/37.5 ML TUBE PO PRN ×2 (07:25)
[2021-09-28] MEDS: Metoclopramide 20 MG in 0.9 % Sodium Chloride 50 ML IVPB SCH ×2 (10:41→17:23)
[2021-09-29] MEDS: Ketorolac 30 MG/ML VIAL IVP SCH ×4 (00:32→17:49)
[2021-09-29] MEDS: Ondansetron 4 MG/2 ML VIAL IVP SCH ×4 (00:58→17:48)
[2021-09-29 02:15] LABS: Hematocrit 26.7 % (35.3-44.9); Hemoglobin 8.8 g/dL (11.5-15.4); Mean Corpuscular Hemoglobin 31.4 pg (28.0-33.3); Mean Corpuscular Volume 95.4 fL (83.0-100.0); Mean Platelet Volume 10.9 fL (9.4-12.4); Platelet Count 288 K/mcL (140-400); Red Cell Distribution Width 13.1 % (11.5-14.5); White Blood Count 11.4 K/mcL (4.3-11.1)
[2021-09-29 02:26] LABS: BUN/Creatinine Ratio 14 (6-26); Blood Urea Nitrogen 9 mg/dL (8-23); Calcium 8.4 mg/dL (8.6-10.3); Carbon Dioxide 23 mEq/L (23-29); Chloride 103 mEq/L (98-107); Glucose 69 mg/dL (70-105); Osmolality,Calculated 283 (280-300); Potassium 3.5 mEq/L (3.5-5.1); Sodium 138 mEq/L (136-145); eGFR For African Americans > 60 (> 60); eGFR For Non-African Americans > 60 (> 60)
[2021-09-29] MEDS: Metoclopramide 20 MG in 0.9 % Sodium Chloride 50 ML IVPB SCH (02:38)
[2021-09-29] MEDS ORDERED: Scopolamine Patch 1.5 MG PATCH.TD72 TD ONE (03:48)
[2021-09-29] MEDS: *HR* Dextrose 50 % in Water (Syg) 50 ML SYRINGE IVP PRN ×2 (04:06→05:37)
[2021-09-29] MEDS: Acetaminophen IV 1,000 MG/100 ML BAG IVPB SCH ×3 (04:57→22:35)
[2021-09-29] MEDS ORDERED: Tetracaine/Benzocaine/Butamben 1 SPRAY AEROSOL MM ONE (08:57)
[2021-09-29] MEDS ORDERED: Lidocaine Jelly 11 ml Syringe MM ONE (08:57)
[2021-09-29 09:46] LABS: Hematocrit 32.6 % (35.3-44.9); Hemoglobin 10.2 g/dL (11.5-15.4)
[2021-09-29] MEDS: *HR* LORazepam 2 MG/ML VIAL IVP PRN ×2 (09:50→17:57)
[2021-09-29] MEDS ORDERED: Chloraseptic Spray 177 ML BOTTLE MM PRN (10:13)
[2021-09-29 11:26] LABS: Estimated Average Glucose 111 mg/dl; Hemoglobin A1C 5.5 %
[2021-09-29] MEDS: D5% in Water 1,000 ML IVC SCH (17:57)
[2021-09-30] MEDS: *HR* LORazepam 2 MG/ML VIAL IVP PRN ×3 (00:04→12:13)
[2021-09-30] MEDS: Ketorolac 30 MG/ML VIAL IVP SCH ×2 (00:05→05:45)
[2021-09-30] MEDS: Ondansetron 4 MG/2 ML VIAL IVP SCH ×4 (00:06→18:22)
[2021-09-30 02:58] LABS: Hematocrit 30.6 % (35.3-44.9); Hemoglobin 9.9 g/dL (11.5-15.4); Mean Corpuscular HGB Conc 32.4 g/dL (31.6-35.5); Mean Corpuscular Volume 95.9 fL (83.0-100.0); Mean Platelet Volume 10.9 fL (9.4-12.4); Platelet Count 295 K/mcL (140-400); Red Blood Count 3.19 M/mcL (3.82-4.97); Red Cell Distribution Width 13.1 % (11.5-14.5); White Blood Count 9.9 K/mcL (4.3-11.1)
[2021-09-30] MEDS ORDERED: tiZANidine 4 MG TABLET PO ONE (03:03)
[2021-09-30 03:14] LABS: BUN/Creatinine Ratio 17 (6-26); Blood Urea Nitrogen 12 mg/dL (8-23); Calcium 8.9 mg/dL (8.6-10.3); Carbon Dioxide 29 mEq/L (23-29); Chloride 99 mEq/L (98-107); Glucose 82 mg/dL (70-105); Osmolality,Calculated 287 (280-300); Sodium 139 mEq/L (136-145); eGFR For African Americans > 60 (> 60); eGFR For Non-African Americans > 60 (> 60)
[2021-09-30] MEDS: Acetaminophen IV 1,000 MG/100 ML BAG IVPB SCH (05:46)
[2021-09-30] MEDS: D5% in Water 1,000 ML IVC SCH (15:25)
[2021-09-30] MEDS: Morphine Sulfate 2 MG/ML SYRINGE IVP PRN ×2 (18:17→23:53)
[2021-09-30] MEDS: Metoclopramide 20 MG in 0.9 % Sodium Chloride 50 ML IVPB SCH (22:21)
[2021-09-30] MEDS: *HR* Promethazine 25 MG/ML VIAL IM PRN (23:52)
[2021-10-01] MEDS: Ondansetron 4 MG/2 ML VIAL IVP SCH ×5 (00:18→23:50)
[2021-10-01 02:28] LABS: Hematocrit 32.7 % (35.3-44.9); Hemoglobin 10.7 g/dL (11.5-15.4); Mean Corpuscular HGB Conc 32.7 g/dL (31.6-35.5); Mean Corpuscular Volume 94.8 fL (83.0-100.0); Mean Platelet Volume 10.8 fL (9.4-12.4); Platelet Count 359 K/mcL (140-400); Red Blood Count 3.45 M/mcL (3.82-4.97); Red Cell Distribution Width 13.1 % (11.5-14.5); White Blood Count 11.3 K/mcL (4.3-11.1)
[2021-10-01 02:53] LABS: BUN/Creatinine Ratio 18 (6-26); Blood Urea Nitrogen 14 mg/dL (8-23); Carbon Dioxide 33 mEq/L (23-29); Chloride 93 mEq/L (98-107); Glucose 101 mg/dL (70-105); Osmolality,Calculated 289 (280-300); Potassium 3.1 mEq/L (3.5-5.1); Sodium 139 mEq/L (136-145); eGFR For African Americans > 60 (> 60); eGFR For Non-African Americans > 60 (> 60)
[2021-10-01] MEDS: D5% in Water 1,000 ML IVC SCH (03:56)
[2021-10-01] MEDS: Morphine Sulfate 2 MG/ML SYRINGE IVP PRN ×5 (05:14→21:56)
[2021-10-01] MEDS ORDERED: Methylnaltrexone 12 MG/0.6 ML SYRINGE SQ ONE (07:12)
[2021-10-01] MEDS: *HR* Promethazine 25 MG/ML VIAL IM PRN (09:17)
[2021-10-01] MEDS: 0.9 % Sodium Chloride 1,000 ML IVC SCH ×2 (17:01→23:34)
[2021-10-01] MEDS: *HR* LORazepam 2 MG/ML VIAL IVP PRN (20:00)
[2021-10-02] MEDS: 0.9 % Sodium Chloride 1,000 ML IVC SCH ×2 (03:10→18:29)
[2021-10-02] MEDS: Morphine Sulfate 2 MG/ML SYRINGE IVP PRN ×2 (05:04→14:41)
[2021-10-02] MEDS: Ondansetron 4 MG/2 ML VIAL IVP SCH ×4 (05:05→23:33)
[2021-10-02 07:32] LABS: Hematocrit 32.1 % (35.3-44.9); Hemoglobin 10.1 g/dL (11.5-15.4); Mean Corpuscular HGB Conc 31.5 g/dL (31.6-35.5); Mean Corpuscular Hemoglobin 29.9 pg (28.0-33.3); Mean Platelet Volume 10.6 fL (9.4-12.4); Platelet Count 317 K/mcL (140-400); Red Blood Count 3.38 M/mcL (3.82-4.97); White Blood Count 9.5 K/mcL (4.3-11.1)
[2021-10-02 07:55] LABS: BUN/Creatinine Ratio 11 (6-26); Blood Urea Nitrogen 10 mg/dL (8-23); Carbon Dioxide 32 mEq/L (23-29); Chloride 99 mEq/L (98-107); Glucose 91 mg/dL (70-105); Osmolality,Calculated 289 (280-300); Sodium 140 mEq/L (136-145); eGFR For African Americans > 60 (> 60); eGFR For Non-African Americans > 60 (> 60)
[2021-10-02] MEDS: *HR* LORazepam 2 MG/ML VIAL IVP PRN ×2 (10:25→19:31)
[2021-10-02] MEDS ORDERED: Ringers Solution, Lactated 500 ML IVC ONE (18:00)
[2021-10-02] MEDS: *HR* Dextrose 50 % in Water (Syg) 50 ML SYRINGE IVP PRN (23:59)
[2021-10-03] MEDS: *HR* LORazepam 2 MG/ML VIAL IVP PRN (01:37)
[2021-10-03 02:32] LABS: Hematocrit 30.6 % (35.3-44.9); Hemoglobin 9.9 g/dL (11.5-15.4); Mean Corpuscular HGB Conc 32.4 g/dL (31.6-35.5); Mean Corpuscular Hemoglobin 31.1 pg (28.0-33.3); Mean Corpuscular Volume 96.2 fL (83.0-100.0); Mean Platelet Volume 10.8 fL (9.4-12.4); Platelet Count 320 K/mcL (140-400); Red Blood Count 3.18 M/mcL (3.82-4.97); White Blood Count 8.4 K/mcL (4.3-11.1)
[2021-10-03 02:50] LABS: BUN/Creatinine Ratio 16 (6-26); Blood Urea Nitrogen 13 mg/dL (8-23); Carbon Dioxide 27 mEq/L (23-29); Chloride 104 mEq/L (98-107); Glucose 86 mg/dL (70-105); Osmolality,Calculated 293 (280-300); Potassium 3.5 mEq/L (3.5-5.1); Sodium 142 mEq/L (136-145); eGFR For African Americans > 60 (> 60); eGFR For Non-African Americans > 60 (> 60)
[2021-10-03] MEDS: Ondansetron 4 MG/2 ML VIAL IVP SCH ×3 (05:17→17:46)
[2021-10-03] MEDS: 0.9 % Sodium Chloride 1,000 ML IVC SCH ×2 (05:17→15:49)
[2021-10-03] MEDS ORDERED: Acetaminophen 325 MG TABLET PO PRN (10:28)
[2021-10-03] MEDS ORDERED: Scopolamine Patch 1.5 MG PATCH.TD72 TD SCH (10:30)
[2021-10-03] MEDS: Ketorolac 30 MG/ML VIAL IVP PRN ×2 (12:42→19:36)
[2021-10-04] MEDS: Ondansetron 4 MG/2 ML VIAL IVP SCH ×6 (03:44→23:50)
[2021-10-04] MEDS: 0.9 % Sodium Chloride 1,000 ML IVC SCH ×2 (03:44→23:55)
[2021-10-04] MEDS: *HR* LORazepam 2 MG/ML VIAL IVP PRN (05:09)
[2021-10-04] MEDS: Ketorolac 30 MG/ML VIAL IVP PRN ×3 (05:10→23:50)
[2021-10-04 09:11] LABS: Hematocrit 32.1 % (35.3-44.9); Hemoglobin 10.1 g/dL (11.5-15.4); Mean Corpuscular HGB Conc 31.5 g/dL (31.6-35.5); Mean Corpuscular Volume 95.3 fL (83.0-100.0); Mean Platelet Volume 11.1 fL (9.4-12.4); Platelet Count 309 K/mcL (140-400); Red Blood Count 3.37 M/mcL (3.82-4.97); Red Cell Distribution Width 12.8 % (11.5-14.5); White Blood Count 6.8 K/mcL (4.3-11.1)
[2021-10-04 09:34] LABS: BUN/Creatinine Ratio 11 (6-26); Blood Urea Nitrogen 11 mg/dL (8-23); Carbon Dioxide 28 mEq/L (23-29); Chloride 105 mEq/L (98-107); Glucose 95 mg/dL (70-105); Osmolality,Calculated 289 (280-300); Potassium 3.6 mEq/L (3.5-5.1); Sodium 140 mEq/L (136-145); eGFR For African Americans > 60 (> 60); eGFR For Non-African Americans 55 (> 60)
[2021-10-04] MEDS: BuPROPion XL (24 HR) 150 MG TABLET PO SCH (09:58)
[2021-10-04] MEDS: polyethylene glycoL 3350 17 GM POWD.PACK PO SCH (09:58)
[2021-10-04] MEDS ORDERED: Propranolol LA (24 HR) 80 MG CAP.SA.24H PO SCH (18:00)
[2021-10-04] MEDS ORDERED: valACYclovir 500 MG TABLET PO SCH (21:00)
[2021-10-05] MEDS: *HR* LORazepam 2 MG/ML VIAL IVP PRN (03:43)
[2021-10-05] MEDS: Ondansetron 4 MG/2 ML VIAL IVP SCH (06:14)
[2021-10-05 08:14] VITALS: O2SAT 96
[2021-10-05] MEDS: polyethylene glycoL 3350 17 GM POWD.PACK PO SCH (08:44)
[2021-10-05] MEDS: Ketorolac 30 MG/ML VIAL IVP PRN (08:44)
[2021-10-05] MEDS: BuPROPion XL (24 HR) 150 MG TABLET PO SCH (08:44)
[2021-10-05 11:01] VITALS: BP 124/76; PULSE 75; TEMP 98.3
== END 2021-10-05 14:29 | disposition home or self-care (01) | DRG 389 ==
LOC: EMEROOARM 23:19 → 3BNU 23:19 → SUATTDRO 09-28 01:16 → 3BNU 09-28 04:21 → 3ANU 10-03 18:39
PROVIDERS: ADMIT Internal Medicine; ATTEND Internal Medicine